=== PATIENT | female | born 1955 | race African-American/Black ===

== ENCOUNTER 2019-05-23 11:31 | Emergency (ER) | payer MEDICAID, OTHER ==
[~2019-05-23] VITALS: Ht 157.5 cm; Wt 83.4 kg
[~2019-05-23 11:31] MED LIST: CYCL10TA7 PO; IBUP800T48 PO
[2019-05-23 11:38] VITALS: BP 199/91; PULSE 70; RESP 20; Ht 157.5 cm; Wt 83.4 kg
--- NOTE | 2019-05-23 12:15 | ERD ---
ER Documentation Chief Complaint Chief Complaint LEFT BUTTOCKS PAIN HPI 63-year-old female presents ED complaining of left buttocks pain x1 week. She states that she fell down on her porch bites missing a step and landing on her left butt. She reports pain to the left but since the incident. She states that it is worse walking and better with rest. She has not taken any medications or treatments for this. She states the pain is sharp in character and rates it at 10 out of 10 when she is walking long distances. She also adds that she has low back pain that radiates down to the affected area. She has a past medical history of hypertension, hyperlipidemia, neuropathy, prediabetes ROS All systems reviewed and are negative except as per history of present illness. Medications Home Meds Active Scripts Cyclobenzaprine Hcl* (Cyclobenzaprine Hcl*) 10 Mg Tablet, 10 MG PO TID, #20 TAB Prov:ANANT MATTHEWS PA-C 05/23/19 Ibuprofen* (Motrin*) 800 Mg Tab, 800 MG PO Q6H PRN for PAIN AND OR ELEVATED TE MP, #30 TAB Prov:ANANT MATTHEWS PA-C 05/23/19 Allergies Allergies: Coded Allergies: No Known Allergy (Unverified , 05/23/19) FmHx Family History: No diabetes Physical Exam Vitals Vital Signs Date Temp Pulse Resp B/P (MAP) Pulse Ox O2 O2 Flow FiO2 Time Delivery Rate 05/23/19 97.8 70 20 199/91 100 11:38 (127) Physical Exam Const: No acute distress Head: Atraumatic Resp: Clear to auscultation bilaterally Cardio: Regular rate and rhythm, Abd: Soft, non tender, non distended. Back: Significant tenderness to the lumbar spine midline that radiates down her leg. No obvious deformities, no bruising, no erythema Neur: Awake and alert Psych: Normal Mood and Affect Results 24 hrs Current Medications Medications Dose Sig/Katie Start Time Status Last (Trade) Ordered Route PRN Stop Time Admin Dose Reason Admin Ibuprofen 800 mg ONCE ONCE 05/23/19 DC 05/23/19 (Motrin) PO 12:30 12:34 05/23/19 12:31 10 mg ONCE ONCE 05/23/19 DC 05/23/19 Cyclobenzapri PO 12:30 12:34 ne HCl 05/23/19 12:31 (Flexeril) Procedures/MDM ED COURSE: The patient was stable throughout ED course. I kept the patient informed of laboratory and diagnostic imaging results throughout the ED course. MEDICATIONS GIVEN: Motrin, Flexeril Patient tolerated medication well with no adverse reactions. Patient reported improvement in pain. MEDICAL DECISION MAKING: Patient is a 63-year-old female complaining of low back pain sciatica rating down the left side x1 week. I have low suspicion for cauda equina syndrome, epidural abscess, septic joint, fracture, ligament tear, muscle tear. Based on the patient's history and physical I think patient is suffering from sciatica. Patient was given Motrin and Flexeril in the ED course which helped improve her symptoms. Patient was given strict return ED precautions if symptoms persist or worsen. Patient agreed with the plan and all questions were answered. Patient's blood pressure was elevated in the ED department however I think this is due to her pain levels. Vital signs were reviewed. Patient is afebrile. Patient was not hypoxic. Patient was hemodynamically stable. Patient was told to follow up with primary care for further care and management. PRESCRIPTION: Motrin, Flexeril DISCHARGE: At this time, patient is stable for discharge and outpatient management. I have instructed the patient to follow-up with their primary care physician in 1-2 days. I have discussed with the patient the possibility of needing to see a specialist for further workup and imaging studies if symptoms persist. I have instructed the patient to promptly return to the ER for any new or worsening symptoms including increased pain, fever, nausea, vomiting, weakness or LOC. The patient expressed understanding of and agreement with this plan. All questions were answered. Home care instructions were provided. Disclaimer: Inadvertent spelling and grammatical errors are likely due to EHR/dictation software use and do not reflect on the overall quality of patient care. Also, please note that the electronic time recorded on this note does not necessarily reflect the actual time of the patient encounter. Departure Diagnosis: Primary Impression: Sciatica of left side Condition: Fair Patient Instructions: Understanding Sciatica, Back Pain W/ Sciatica Referrals: COMM[facility] CL[facility] YOU HAVE RECEIVED A MEDICAL SCREENING EXAM AND THE RESULTS INDICATE THAT YOU DO NOT HAVE A CONDITION THAT REQUIRES URGENT TREATMENT IN THE EMERGENCY DEPARTMENT. FURTHER EVALUATION AND TREATMENT OF YOUR CONDITION CAN WAIT UNTIL YOU ARE SEEN IN YOUR DOCTORS OFFICE WITHIN THE NEXT 1-2 DAYS. IT IS YOUR RESPONSIBILITY TO MAKE AN APPOINTMENT FOR FOLOW-UP CARE. IF YOU HAVE A PRIMARY DOCTOR --you should call your primary doctor and schedule an appointment IF YOU DO NOT HAVE A PRIMARY DOCTOR YOU CAN CALL OUR PHYSICIAN REFERRAL HOTLINE AT IF YOU CAN NOT AFFORD TO SEE A PHYSICIAN YOU CAN CHOSE FROM THE FOLLOWING [facility] [address] [facility] [address] [facility] [address] [facility] [address] [facility] [address] [facility]. [facility] [address] [facility]. [facility] YOU HAVE RECEIVED A MEDICAL SCREENING EXAM AND THE RESULTS INDICATE THAT YOU DO NOT HAVE A CONDITION THAT REQUIRES URGENT TREATMENT IN THE EMERGENCY DEPARTMENT. FURTHER EVALUATION AND TREATMENT OF YOUR CONDITION CAN WAIT UNTIL YOU ARE SEEN IN YOUR DOCTORS OFFICE WITHIN THE NEXT 1-2 DAYS. IT IS YOUR RESPONSIBILITY TO MAKE AN APPOINTMENT FOR FOLOW-UP CARE. IF YOU HAVE A PRIMARY DOCTOR --you should call your primary doctor and schedule and appointment IF YOU DO NOT HAVE A PRIMARY DOCTOR YOU CAN CALL OUR PHYSICIAN REFERRAL HOTLINE AT . IF YOU CAN NOT AFFORD TO SEE A PHYSICIAN YOU CAN CHOSE FROM THE FOLLOWING [facility]: [facility] [address] [place] [address] [facility] [address] [place] [address] [facility] [address] [place] [address] Additional Instructions: Apply hot and ice packs to the affected area several times per day. Follow-up with your primary care provider and consider the possibility of physical therapy in the future Call your primary care doctor TOMORROW for an appointment during the next 1-2 days.See the doctor sooner or return here if your condition worsens before your appointment time. ANANT MATTHEWS PA-C May 23, 2019 12:15
[2019-05-23] MEDS ORDERED: IBUPROFEN 800 MG TAB PO ONE (12:30)
[2019-05-23] MEDS ORDERED: CYCLOBENZAPRINE 10 MG TAB PO ONE (12:30)
== END 2019-05-23 12:44 | disposition home or self-care (01) ==
LOC: FTE 11:31
DX: M54.42 Lumbago with sciatica, left side (principal)
CPT/HCPCS: Z7502; Z7610; 99283